=== PATIENT | male | born 1980 | race African-American/Black ===

== ENCOUNTER 2019-05-27 13:44 | Emergency (ER) | payer SELFPAY ==
[~2019-05-27] VITALS: Ht 175.3 cm; Wt 81.0 kg
[2019-05-27 21:35] VITALS: BP 131/78
== END 2019-05-27 21:36 | disposition home or self-care (01) ==
LOC: ER 13:44
DX: J32.9 Chronic sinusitis, unspecified (principal); K21.9 Gastro-esophageal reflux disease without esophagitis; R51 Headache; Z87.891 Personal history of nicotine dependence
CPT/HCPCS: 99283